=== PATIENT | female | born 1990 | race Caucasian/White ===

== ENCOUNTER 2018-08-16 17:58 | Emergency (ER) | payer SELFPAY ==
[2018-08-16] MEDS ORDERED: IBUPROFEN 600 MG TABLET (FP) PO ONE ×2 (18:06→18:12)
[2018-08-16 18:07] VITALS: BP 113/60; BMI 26.0
--- NOTE | 2018-08-16 18:08 | PDOC ---
Rapid Medical Evaluation Chief Complaint: Respiratory Time Seen by Provider: 08/16/18 18:02 Medical Evaluation: 08/16/18 18:02 I have performed a brief in-person evaluation of this patient. The patient presents with a chief complaint of: cough, fever Pertinent physical exam findings:stable and in NAD, non-focal I have ordered the following: motrin, flu and strep The patient will proceed to the ED for further evaluation.
--- NOTE | 2018-08-16 18:11 | PDOC ---
History of Present Illness - General Chief Complaint: Cold Symptoms Stated Complaint: SORE THROAT FEVER Time Seen by Provider: 08/16/18 18:02 History Source: Patient - History of Present Illness Initial Comments: 08/16/18 19:08 28-year-old female complaining of nasal congestion, throat pain, lower back pain for the last 5 days. Patient is noted to have a fever today. Patient is 18 weeks , denies abdominal pain, vaginal bleeding, vaginal discharge. Patient recently came from [facility] in the last 2 weeks. Past History - Past Medical History Allergies/Adverse Reactions: Allergies Allergy/AdvReac Type Severity Reaction Status Date / Time No Known Allergies Allergy Verified 08/16/18 18:07 Home Medications: Ambulatory Orders Acetaminophen [Tylenol] 650 mg PO ASDIR 08/16/18 Oseltamivir Phosphate [Tamiflu] 75 mg PO BID #10 capsule 08/16/18 COPD: No Kidney Stones: No - Surgical History Gastric Stapling: No Lung Surgery: No - Immunization History Immunization Up to Date: No - Suicide/Smoking/Psychosocial Hx Smoking History: Never smoked Have you smoked in the past 12 months: No Information on smoking cessation initiated: No Hx Alcohol Use: No Drug/Substance Use Hx: No *Physical Exam - Vital Signs Last Vital Signs Temp Pulse Resp BP Pulse Ox 102.9 F H 147 H 18 113/60 99 08/16/18 18:03 08/16/18 18:03 08/16/18 18:03 08/16/18 18:03 08/16/18 18:03 - Physical Exam General Appearance: Yes: Appropriately Dressed HEENT: positive: Tonsillar Erythema Respiratory/Chest: positive: Lungs Clear, Normal Breath Sounds Cardiovascular: positive: Tachycardia Gastrointestinal/Abdominal: positive: Normal Bowel Sounds, Soft. negative: Tender Extremity: positive: Normal Capillary Refill, Normal Inspection, Normal Range of Motion Integumentary: positive: Normal Color, Dry, Warm Neurologic: positive: Fully Oriented, Alert, Normal Mood/Affect Medical Decision Making - Medical Decision Making 08/16/18 19:38 A: influenza A P: IVF fever control rapid strep negative UA negative *DC/Admit/Observation/Transfer Diagnosis at time of Disposition: Influenza A - Discharge Dispostion Disposition: HOME Condition at time of disposition: Stable - Prescriptions Prescriptions: Oseltamivir Phosphate [Tamiflu] 75 mg PO BID #10 capsule - Referrals - Patient Instructions Printed Discharge Instructions: DI for Common Cold Additional Instructions: Drink plenty of fluids. Take Tamiflu as prescribed Give Tylenol every 4 hours as needed for fever Return to the emergency room if symptoms worsen. - Post Discharge Activity
[2018-08-16 18:48] LABS: PH,URINE >= 9.0 (5.0-8.0); URINE APPEARANCE CLEAR; URINE BILIRUBIN NEGATIVE (NEGATIVE); URINE COLOR YELLOW; URINE GLUCOSE (UA) NEGATIVE (NEGATIVE); URINE KETONE NEGATIVE (NEGATIVE); URINE LEUK ESTERASE NEGATIVE (NEGATIVE); URINE NITRITE NEGATIVE (NEGATIVE); URINE PROTEIN NEGATIVE (NEGATIVE); URINE UROBILINOGEN 0.2 mg/dL (0.2-1.0)
[2018-08-16] MEDS ORDERED: SODIUM CHLORIDE 1,000 ML IV STA (19:11)
[2018-08-16] MEDS ORDERED: OSELTAMIVIR PHOSPHATE 75 MG CAPSULE PO ONE (19:35)
[2018-08-16 20:37] VITALS: PULSE 96; TEMP 98
== END 2018-08-16 20:41 | disposition home or self-care (01) ==
LOC: JERFT 17:58
PROC: 3E0337Z Introduction of Electrolytic and Water Balance Substance into Peripheral Vein, Percutaneous Approach (ICD-10-PCS; principal; 2018-08-16)
DX: J09.X2 Influenza due to identified novel influenza A virus with other respiratory manifestations (principal)
CPT/HCPCS: 81003; 87070; 87086; 87804; 87880; 99281-25; J7030

== ENCOUNTER 2019-01-18 11:10 | Inpatient (IN) | payer OTHER ==
[2019-01-18] MEDS ORDERED: AMPICILLIN - 2 GM in SODIUM CHLORIDE 100 ML IVPB ONE ×2 (14:25→15:00)
[2019-01-18] MEDS ORDERED: PROMETHAZINE HCL 25 MG/1 ML VIAL IVPUSH ONE (14:28)
[2019-01-18] MEDS ORDERED: BUTORPHANOL TARTRATE 1 MG/ML VIAL IVPUSH PRN (14:28)
[2019-01-18] MEDS: DEXTROSE 5%-LACTATED RINGERS 1,000 ML IV SCH ×2 (14:30→19:00)
--- NOTE | 2019-01-18 14:40 | HP ---
Past Medical History - Primary Care Physician PCP:: Polo Vanegas - Admission Chief Complaint: 40.1 weeks, labor History of Present Illness: 28 yo f 40.1 weeks, c/o of contraction, no rom, no bleeding, cx 3 cm 70 vx -2 mi, fhr cat 1, irregular contraction . GBS positve History Source: Patient Limitations to Obtaining History: Language Barrier - Past Medical History ...: 2 ...Para: 1 ...Term: 1 ...: 0 ...Spon : 0 ...Induced : 0 ...EDC by [facility]: 01/17/19 - Past Surgical History Hx Myomectomy: No Hx Transabdominal Cerclage: No - Smoking History Smoking history: Never smoked Have you smoked in the past 12 months: No - Alcohol/Substance Use Hx Alcohol Use: No History of Substance Use: reports: None - Social History History of Recent Travel: No Home Medications - Allergies Allergies/Adverse Reactions: Allergies Allergy/AdvReac Type Severity Reaction Status Date / Time No Known Allergies Allergy Verified 01/18/19 12:49 - Home Medications Home Medications: Ambulatory Orders Vits96/Iron Fum/Folic [ Tablet] 1 each PO 01/18/19 Review of Systems - Review of Systems Constitutional: reports: No Symptoms Eyes: reports: No Symptoms HENT: reports: No Symptoms Neck: reports: No Symptoms Cardiovascular: reports: No Symptoms Respiratory: reports: No Symptoms Genitourinary: reports: No Symptoms Breasts: reports: No Symptoms Reported Musculoskeletal: reports: No Symptoms Integumentary: reports: No Symptoms Neurological: reports: No Symptoms Endocrine: reports: No Symptoms Hematology/Lymphatic: reports: No Symptoms Psychiatric: reports: No Symptoms Physical Exam - Maternity Vital Signs: Vital Signs Temperature 98.3 F 01/18/19 11:30 Pulse Rate 72 01/18/19 11:30 Respiratory Rate 18 01/18/19 11:30 Blood Pressure 115/65 01/18/19 11:30 O2 Sat by Pulse Oximetry (%) Constitutional: Yes: Well Nourished, No Distress, Calm Eyes: Yes: WNL, Conjunctiva Clear, EOM Intact HENT: Yes: WNL, Atraumatic, Normocephalic Neck: Yes: WNL, Supple, Trachea Midline Cardiovascular: Yes: WNL, Regular Rate and Rhythm Breast(s): Yes: WNL - Abdominal Exam/OB Fundal Height: 40 Number of Fetuses: Single Presentation: Vertex Contractions: Yes Regularity: Irregular Intensity: Mod/Strong Monitor Mode: External Heart Rate Location: [facility] Category: I Accelerations: Non-Uniform Decelerations: None - Vaginal Exam/OB Vaginal Bleediing: No Speculum Exam: No Dilatation (cm): 3 cm Effacement (%): 70 Amniotic Membrane Status: Intact Presentation: Vertex/Position Station: -2 - Physical Exam Musculoskeletal: Yes: WNL Extremities: Yes: WNL Edema: LLE: Trace, RLE: Trace Deep Tendon Reflex Grade: Normal +2 ...Motor Strength: WNL Psychiatric: Yes: WNL Hemorrhage Risk Assessment - Risk Factors Medium Risk Factors: Yes: None High Risk Factors: Yes: None Risk Score: 1 Risk Level: Medium Risk Problem List - Problems (1) Post-term , 40-42 weeks of gestation Code(s): O48.0 - POST-TERM (2) Labor established Code(s): OXR6237 - (3) Positive GBS test Code(s): B95.1 - STREPTOCOCCUS, GROUP B, CAUSING DISEASES CLASSD ELSWHR Assessment/Plan admit, M iv ampicillin
[2019-01-18] MEDS ORDERED: AMPICILLIN SODIUM 2 GM VIAL ONE (14:58)
[2019-01-18 15:44] VITALS: BMI 31.4
[2019-01-18 15:55] LABS: BASO % 0.2 % (0-2.0); EOS % 0.3 % (0-4.5); HEMATOCRIT 37.4 % (32.4-45.2); HEMOGLOBIN 12.3 GM/dL (10.7-15.3); LYMPH % 16.1 % (8-40); MCH 29.2 pg (25.7-33.7); MCHC 32.9 g/dl (32.0-36.0); MEAN CELL VOLUME 88.7 fl (80-96); MEAN PLT VOLUME 10.2 fl (7.5-11.1); MONO % 3.6 % (3.8-10.2); NEUT % 79.8 % (42.8-82.8); PLATELET COUNT 276 K/MM3 (134-434); RBC 4.21 M/mm3 (3.60-5.2); RDW 15.8 % (11.6-15.6); WHITE BLOOD COUNT 10.5 K/mm3 (4.0-10.0)
[2019-01-18 16:07] LABS: INR 0.92 (0.83-1.09); PROTHROMBIN TIME (PATIENT) 10.9 SEC (9.7-13.0)
[2019-01-18 16:10] LABS: ACTIVATED PTT 26.9 SECONDS (25.2-36.5)
[2019-01-18 16:41] LABS: BLOOD UREA NITROGEN 5.6 mg/dL (7-18); CALCIUM 8.9 mg/dL (8.5-10.1); CREATININE 0.5 mg/dL (0.55-1.3); POTASSIUM 3.6 mmol/L (3.5-5.1)
[2019-01-18] MEDS ORDERED: AMPICILLIN SODIUM 1 GM VIAL ONE ×2 (18:30→23:09)
[2019-01-18] MEDS: AMPICILLIN - 1 GM in SODIUM CHLORIDE 100 ML IVPB SCH ×2 (19:00→23:00)
[2019-01-18] MEDS ORDERED: BUTORPHANOL TARTRATE 1 MG/ML VIAL ONE ×2 (23:54)
[2019-01-18] MEDS ORDERED: PROMETHAZINE HCL 25 MG/1 ML VIAL ONE (23:54)
[2019-01-19] MEDS ORDERED: OXYTOCIN 30 UNITS in 0.9% NS 30 UNIT/500 ML INFUS.BAG IVPB SCH
[2019-01-19] MEDS: DEXTROSE 5%-LACTATED RINGERS 1,000 ML IV SCH (00:10)
[2019-01-19] MEDS ORDERED: OXYTOCIN 30 UNITS in 0.9% NS 30 UNIT/500 ML INFUS.BAG IVPB ONE (00:25)
[2019-01-19] MEDS ORDERED: OXYTOCIN 20 UNITS in 0.9% NS 20 UNIT/1,000 ML INFUS.BAG IV ONE ×2 (01:46→04:58)
[2019-01-19] MEDS ORDERED: LIDOCAINE HCL 1% PRESERVATIVE FREE - 30ML VIAL ONE (01:46)
[2019-01-19] MEDS: OXYTOCIN 20 UNITS in 0.9% NS 20 UNIT/1,000 ML INFUS.BAG IV SCH ×2 (02:25→06:50)
[2019-01-19] MEDS ORDERED: BISACODYL 10 MG SUPP.RECT RC PRN (02:26)
[2019-01-19] MEDS ORDERED: WITCH HAZEL 50% (TUCKS) 40 PAD/JAR PAD TP PRN (02:26)
[2019-01-19] MEDS ORDERED: BENZOCAINE 28 GM HEMORRHOIDAL OINTMENT TP PRN (02:26)
[2019-01-19] MEDS ORDERED: METHYLERGONOVINE MALEATE 0.2 MG/1 ML AMP IM PRN (02:26)
[2019-01-19] MEDS ORDERED: BENZOCAINE 20% 57 GM BOTTLE TP PRN (02:26)
--- NOTE | 2019-01-19 02:47 | PN ---
Delivery - Delivery Vaginal Delivery: Spontaneous (Precipitous delivery.) Type of Anesthesia: Local Episiotomy/Laceration: Midline (Small epis. No lacer.) EBL (cc): 250 Delivery, Single - Stages of Labor Date of Delivery: 01/19/19 Time of Delivery: 02:20 Time Placenta Delivered: : Placenta: Yes: Spontaneous - Condition of Infant Assignment Manager/Fabrics And Material Cutter Present: No Infant Gender: Female Position: Left, OA (, apgars 9 and 9. Delayed cord clamping. Cord divided by FOB.) - [place] Feeding Plan Initial Plan: Elected not to breastfeed exclusively throughout hospitalization Remarks - Remarks Remarks: Epis repaired w single, continuous running suture. Mom is stable and happy.
[2019-01-19] MEDS ORDERED: IBUPROFEN 600 MG TABLET (FP) PO ONE (07:40)
[2019-01-19] MEDS ORDERED: ACETAMINOPHEN 325 MG TABLET (FP) ONE (07:40)
[2019-01-19] MEDS: AMPICILLIN - 1 GM in SODIUM CHLORIDE 100 ML IVPB SCH ×4 (07:45→19:23)
[2019-01-19] MEDS: IBUPROFEN 600 MG TABLET (FP) PO PRN ×2 (07:46→19:51)
[2019-01-19] MEDS: ACETAMINOPHEN 325 MG TABLET (FP) PO PRN ×2 (07:46→19:50)
[2019-01-19] MEDS: FERROUS SO4 325 MG TABLET (FP) PO SCH ×2 (10:54→22:08)
[2019-01-19] MEDS: PRENATAL VITAMINS W/ FOLIC ACID TABLET (FP) PO SCH (10:54)
[2019-01-20] MEDS ORDERED: ACETAMINOPHEN 325 MG TABLET (FP) PO PRN (02:48)
[2019-01-20 10:02] LABS: BASO % 0.3 % (0-2.0); EOS % 0.8 % (0-4.5); HEMOGLOBIN 11.6 GM/dL (10.7-15.3); LYMPH % 15.2 % (8-40); MCH 29.7 pg (25.7-33.7); MCHC 33.2 g/dl (32.0-36.0); MEAN CELL VOLUME 89.3 fl (80-96); MONO % 5.5 % (3.8-10.2); NEUT % 78.2 % (42.8-82.8); PLATELET COUNT 245 K/MM3 (134-434); RBC 3.92 M/mm3 (3.60-5.2); RDW 16.3 % (11.6-15.6); WHITE BLOOD COUNT 11.4 K/mm3 (4.0-10.0)
[2019-01-20] MEDS: PRENATAL VITAMINS W/ FOLIC ACID TABLET (FP) PO SCH (10:31)
[2019-01-20] MEDS: FERROUS SO4 325 MG TABLET (FP) PO SCH ×2 (10:31→21:13)
--- NOTE | 2019-01-20 10:43 | PN ---
Progress Note (short form) - Note Progress Note: ppd 1 doing well, no c/o , voids ok CBC, BMP 01/20/19 09:43 01/18/19 14:30 Last Vital Signs Temp Pulse Resp BP Pulse Ox 98.1 F 77 18 117/70 100 01/19/19 23:36 01/19/19 23:36 01/19/19 23:36 01/19/19 23:36 01/19/19 04:30 abdomen soft, uterus firm, non tender no calf tenderness plan ambulate, plan for D/C home in am Problem List - Problems (1) Post-term , 40-42 weeks of gestation Code(s): O48.0 - POST-TERM (2) Labor established Code(s): ERI8004 - (3) Positive GBS test Code(s): B95.1 - STREPTOCOCCUS, GROUP B, CAUSING DISEASES CLASSD ELSWHR
[2019-01-20] MEDS: AMPICILLIN - 1 GM in SODIUM CHLORIDE 100 ML IVPB SCH (19:12)
[2019-01-20] MEDS: IBUPROFEN 600 MG TABLET (FP) PO PRN (21:13)
[2019-01-20] MEDS ORDERED: SENNOSIDES/DOCUSATE COMBO (SENNA PLUS) TABLET (UD) PO PRN (22:00)
[2019-01-21] MEDS: PRENATAL VITAMINS W/ FOLIC ACID TABLET (FP) PO SCH (09:45)
[2019-01-21] MEDS: FERROUS SO4 325 MG TABLET (FP) PO SCH (09:45)
[2019-01-21 12:44] LABS: POC NITRAZINE POS
[2019-01-21 12:45] VITALS: BP 101/54; PULSE 64; TEMP 98.3
--- NOTE | 2019-01-21 14:02 | DS ---
Physical Exam-COUNTER WAITRESS/WAITER Vital Signs: Vital Signs Temperature 98.3 F 01/21/19 12:45 Pulse Rate 64 01/21/19 12:45 Respiratory Rate 20 01/21/19 12:45 Blood Pressure 101/54 L 01/21/19 12:45 O2 Sat by Pulse Oximetry (%) 100 01/19/19 04:30 Constitutional: Yes: Well Nourished, No Distress, Calm Eyes: Yes: WNL, Conjunctiva Clear, EOM Intact HENT: Yes: WNL, Atraumatic, Normocephalic Neck: Yes: WNL, Supple, Trachea Midline Cardiovascular: Yes: WNL, Regular Rate and Rhythm Respiratory: Yes: WNL, Regular, CTA Bilaterally Gastrointestinal: Yes: WNL ...Rectal Exam: Yes: WNL Renal/: Yes: WNL ....Post : Yes: Uterus firm, Uterus non-tender, Slight lochia rubra Breast(s): Yes: WNL Musculoskeletal: Yes: WNL Extremities: Yes: WNL Edema: No Integumentary: Yes: WNL Neurological: Yes: WNL, Alert, Oriented ...Motor Strength: WNL Psychiatric: Yes: WNL, Alert, Oriented Labs: CBC, BMP 01/20/19 09:43 01/18/19 14:30 Delivery - Delivery Vaginal Delivery: Spontaneous (Precipitous delivery.) Type of Anesthesia: Local Episiotomy/Laceration: Midline EBL (cc): 250 Delivery, Single - Stages of Labor Date 1st Stage Initiatied: 01/19/19 Time 1st Stage Initiated: 00:00 Date 2nd Stage Initiated: 01/19/19 Time 2nd Stage Initiated: 02:10 Date of Delivery: 01/19/19 Time of Delivery: 02:20 Time Placenta Delivered: 02:25 Placenta: Yes: Spontaneous - Condition of Infant Director Technical/Supervisor Home Energy Consultant Present: No Infant Gender: Female Weight: 6 lb 15 oz Position: Left, OA Total Hours ROM (Hrs/Mins): 1hr 15min - 1 Minute Total Score: 9 5 Minutes Total Score: 9 - Feeding Plan Initial Plan: Elected not to breastfeed exclusively throughout hospitalization Discharge Summary Reason For Visit: LABOR ADMISSION Current Active Problems Labor established (Acute) Positive GBS test (Acute) Post-term , 40-42 weeks of gestation (Acute) Procedures: Principal: Hospital Course: no complication Condition: Good - Instructions Diet, Activity, Other Instructions: regular diet, no intercourse , follow up [facility] 4 weeks , if fever, pain, heavy vaginal bleeding call MD Referrals: Polo Vanegas MD [Staff Physician] - Disposition: HOME - Home Medications Comprehensive Discharge Medication List: Ambulatory Orders Vits96/Iron Fum/Folic [ Tablet] 1 each PO DAILY 01/18/19 Ibuprofen [Motrin -] 400 mg PO QID #28 tablet 01/20/19
== END 2019-01-21 14:00 | disposition home or self-care (01) | DRG 560 ==
LOC: JDEL 11:10 → JLDR 14:15 → J3W 01-19 16:01
PROVIDERS: ADMIT Obstetrics & Gynecology; ATTEND Obstetrics & Gynecology
PROC: 10E0XZZ Delivery of Products of Conception, External Approach (ICD-10-PCS; principal; 2019-01-19)
PROC: 0W8NXZZ Division of Female Perineum, External Approach (ICD-10-PCS; 2019-01-19)
DX: O48.0 Post-term pregnancy (principal); Z3A.40 40 weeks gestation of pregnancy; O99.824 Streptococcus B carrier state complicating childbirth; Z37.0 Single live birth
CPT/HCPCS: 36415; 59409; 80048; 83986-QW; 85025; 85610; 85730; 86593; 86850; 86900; 86901